=== PATIENT | female | born 1960 | race Caucasian/White ===

== ENCOUNTER → 2017-02-22 | Outpatient (CLI) | payer OTHER | LOC: OD 17:02 | PROVIDERS: ATTEND Internal Medicine Pulmonary Disease | DX: J30.2 Other seasonal allergic rhinitis (principal); R05 Cough | CPT/HCPCS: 71020 ==

== ENCOUNTER → 2017-02-22 | Outpatient (CLI) | payer OTHER ==
[2017-02-22 17:42] LABS: ABSOLUTE BASOPHILS # (AUTO) 0.1 10^3/uL (0.0-0.2); ABSOLUTE EOSINOPHILS # (AUTO) 0.2 10^3/uL (0.0-0.6); ABSOLUTE LYMPHOCYTES (AUTO) 2.6 10^3/uL (0.5-4.7); ABSOLUTE MONOCYTES (AUTO) 0.7 10^3/uL (0.1-1.4); ABSOLUTE NEUT (AUTO) 4.5 10^3/uL (1.7-8.2); BASOPHILS % (AUTO) 0.9 % (0-2); EOSINOPHILS % (AUTO) 2.2 % (0-6); HEMATOCRIT 39.3 % (36.0-47.0); HEMOGLOBIN 13.1 g/dL (12.0-15.5); LYMPHOCYTES % (AUTO) 31.9 % (13-45); MEAN CORPUSCULAR HEMOGLOBIN 30.9 pg (27.0-33.4); MEAN CORPUSCULAR HGB CONC 33.3 g/dL (32.0-36.0); MEAN CORPUSCULAR VOLUME 93 fl (80-97); RED BLOOD COUNT 4.24 10^6/uL (3.72-5.28)
== END ==
LOC: OD 17:10
PROVIDERS: ATTEND Internal Medicine Pulmonary Disease
DX: J30.2 Other seasonal allergic rhinitis (principal); R05 Cough
CPT/HCPCS: 36415; 82785; 85025; 87804

== ENCOUNTER → 2018-07-13 | Outpatient (CLI) | payer MEDICARE, OTHER ==
[2018-07-13 15:49] LABS: ABSOLUTE EOSINOPHILS # (AUTO) 0.1 10^3/uL (0.0-0.6); ABSOLUTE LYMPHOCYTES (AUTO) 3.6 10^3/uL (0.5-4.7); ABSOLUTE MONOCYTES (AUTO) 0.6 10^3/uL (0.1-1.4); ABSOLUTE NEUT (AUTO) 3.1 10^3/uL (1.7-8.2); BASOPHILS % (AUTO) 0.2 % (0-2); EOSINOPHILS % (AUTO) 0.9 % (0-6); HEMATOCRIT 36.9 % (36.0-47.0); HEMOGLOBIN 12.4 g/dL (12.0-15.5); LYMPHOCYTES % (AUTO) 48.4 % (13-45); MEAN CORPUSCULAR HEMOGLOBIN 31.1 pg (27.0-33.4); MEAN CORPUSCULAR HGB CONC 33.5 g/dL (32.0-36.0); MEAN CORPUSCULAR VOLUME 93 fl (80-97); PLATELET COUNT 415 10^3/uL (150-450); RED BLOOD COUNT 3.97 10^6/uL (3.72-5.28); RED CELL DISTRIBUTION WIDTH 15.5 % (11.5-14.0); SEGMENTED NEUTROPHILS % (AUTO) 42.5 % (42-78); TOTAL CELLS COUNTED % (AUTO) 100 %; WHITE BLOOD COUNT 7.4 10^3/uL (4.0-10.5)
--- NOTE | 2018-07-13 15:55 | RADIOLOGY REPORT (SQ) ---
EXAM DESCRIPTION: CHEST PA/LATERAL COMPLETED DATE/TIME: 07/13/2018 3:39 pm REASON FOR STUDY: BRONCHITIS, MUCOPURULENT RECURRENT COMPARISON: 02/22/2017, 08/22/2015 EXAM PARAMETERS: NUMBER OF VIEWS: two views TECHNIQUE: Digital Frontal and Lateral radiographic views of the chest acquired. RADIATION DOSE: NA LIMITATIONS: none FINDINGS: LUNGS AND PLEURA: No opacities, masses or pneumothorax. No pleural effusion. MEDIASTINUM AND HILAR STRUCTURES: No masses or contour abnormalities. HEART AND VASCULAR STRUCTURES: Heart normal size. No evidence for failure. BONES: No acute findings. HARDWARE: None in the chest. OTHER: No other significant finding. IMPRESSION: NO SIGNIFICANT RADIOGRAPHIC FINDING IN THE CHEST. TECHNICAL DOCUMENTATION: JOB ID: [id number] [employer]- All Rights Reserved Reading location - IP/workstation name: [email or web address]
[2018-07-13 16:02] LABS: A TYPE INFLUENZA AG NEGATIVE (NEGATIVE); B INFLUENZA AG NEGATIVE (NEGATIVE)
== END ==
LOC: OD 15:05
PROVIDERS: ATTEND Internal Medicine Pulmonary Disease
DX: J41.1 Mucopurulent chronic bronchitis (principal)
CPT/HCPCS: 71046; 85025; 87070; 87077; 87186; 87205; 87804

== ENCOUNTER → 2018-08-23 | Outpatient (CLI) | payer MEDICARE, OTHER ==
--- NOTE | 2018-08-23 16:26 | WOMENS IMAGING REPORT ---
EXAM DESCRIPTION: BILAT SCREENING MAMMO W/CAD COMPLETED DATE/TIME: 08/23/2018 4:06 pm REASON FOR STUDY: BILATERAL SCREENING MAMMO /Z12.31 Z12.31 ENCNTR SCREEN MAMMOGRAM FOR MALIGNANT NE OPLASM OF CHE COMPARISON: None available TECHNIQUE: Standard craniocaudal and mediolateral oblique views of each breast recorded using [employer] acquisition. LIMITATIONS: None. FINDINGS: No masses, calcifications or architectural distortion. No areas of suspicion. Read with the assistance of CAD. .[facility] - R2 Cenova Version 1.3 .[facility] - R2 Cenova Version 1.3 .[facility] - R2 Cenova Version 2.4 .[facility] [place] - R2 Cenova Version 2.4 .[facility] - R2 Step [employer] Specialist Version 9.2 IMPRESSION: NORMAL MAMMOGRAM. BIRADS 1. BREAST DENSITY: b. There are scattered areas of fibroglandular density. BIRAD: 1 NEGATIVE RECOMMENDATION: ROUTINE SCREENING Please continue yearly bilateral screening mammography/tomosynthesis in August 2019 COMMENT: The patient has been notified of the results by letter per SA requirements. Additional no tification policies are in place for contacting patient with suspicious or incomplete findings. Quality ID #225: The [employer] recommends an annual screening mammogram for women aged 40 years or over. This facility utilizes a reminder system to ensure that all patients receive reminder letters, and/or direct phone calls for appointments. This includes reminders for routine scr eening mammograms, diagnostic mammograms, or other Breast Imaging Interventions when appropriate. Th is patient will be placed in the appropriate reminder system. The [employer] (ACR) has developed recommendations for screening MRI of the breast s in certain patient populations, to be used in conjunction with mammography. Breast MRI surveillanc e may be appropriate for women with more than 20% lifetime risk of developing breast cancer as deter mined by genetic testing, significant family history of the disease, or history of mantle radiation f or Hodgkins Disease. ACR Practice Guidelines 2008. TECHNICAL DOCUMENTATION: FINDING NUMBER: (1) ASSESSMENT: (1) JOB ID: [id number] [employer]- All Rights Reserved Reading location - IP/workstation name: [email or web address]
== END ==
LOC: WI 15:19
PROVIDERS: ATTEND Family Medicine
DX: Z12.31 Encounter for screening mammogram for malignant neoplasm of breast (principal)
CPT/HCPCS: 77067

== ENCOUNTER → 2018-11-23 | Outpatient (CLI) | payer MEDICARE, OTHER ==
--- NOTE | 2018-11-23 14:20 | RADIOLOGY REPORT (SQ) ---
EXAM DESCRIPTION: CT CHEST WITHOUT COMPLETED DATE/TIME: 11/23/2018 1:55 pm REASON FOR STUDY: J43.9 EMPHYSEMA J43.9 EMPHYSEMA, UNSPECIFIED COMPARISON: None. TECHNIQUE: CT scan performed of the chest without intravenous contrast. Images reviewed with lung, soft tissue and bone windows. Reconstructed coronal and sagittal MPR images reviewed. All images st ored on PACS. All CT scanners at this facility use dose modulation, iterative reconstruction, and/or weight based d osing when appropriate to reduce radiation dose to as low as reasonably achievable (ALARA). [facility]: Dose Right [facility]: CareDose [facility]: Dose Right [facility]: Teradose 4D [facility]: Rollstream RADIATION DOSE: CT Rad equipment meets quality standard of care and radiation dose reduction techniq ues were employed. CTDIvol: 10.0 mGy. DLP: 373 mGy-cm. mGy. LIMITATIONS: No technical limitations. FINDINGS: LUNGS AND PLEURA: Mild centrilobular emphysema. 3 mm ground-glass nodule in the middle lo be image 59. Slightly smaller ground-glass nodule in the middle lobe image 60. HILAR AND MEDIASTINAL STRUCTURES: No identified masses or abnormal nodes. No obvious aneurysm. HEART AND VASCULAR STRUCTURES: No aneurysm. No pericardial effusion. UPPER ABDOMEN: Small cyst left lobe liver. Limited exam. THYROID AND OTHER SOFT TISSUES: No masses. No adenopathy. BONES: Nothing acute. HARDWARE: None in the chest. OTHER: No other significant findings. IMPRESSION: 1. Emphysema. No fibrosis. 2. Incidental less than 4 mm nodules in the middle lobe. COMMENT: Chest CT followup in 6 months is recommended. TECHNICAL DOCUMENTATION: JOB ID: [id number] Quality ID # 436: Final reports with documentation of one or more dose reduction techniques (e.g., Au tomated exposure control, adjustment of the mA and/or kV according to patient size, use of iterative reconstruction technique) 2010 [employer]- All Rights Reserved Reading location - IP/workstation name: [email or web address]
== END ==
LOC: RAD 13:15
PROVIDERS: ATTEND Internal Medicine Pulmonary Disease
DX: J43.9 Emphysema, unspecified (principal)
CPT/HCPCS: 71250

== ENCOUNTER → 2018-11-23 | Outpatient (CLI) | payer MEDICARE, OTHER ==
[2018-11-25 16:40] LABS: CYTOPLASMIC (C-ANCA) <1:20 titer (Neg:<1:20)
[2018-11-26 20:36] LABS: ATYPICAL PANCA <1:20 titer (Neg:<1:20); PERINUCLEAR (P-ANCA) <1:20 titer (Neg:<1:20)
== END ==
LOC: OD 14:01
PROVIDERS: ATTEND Internal Medicine Pulmonary Disease
DX: R06.00 Dyspnea, unspecified (principal)
CPT/HCPCS: 36415; 86021; 86038; 86225; 86235; 86430

== ENCOUNTER → 2019-05-27 | Outpatient (CLI) | payer MEDICARE, OTHER ==
--- NOTE | 2019-05-27 13:57 | RADIOLOGY REPORT (SQ) ---
EXAM DESCRIPTION: CT CHEST WITHOUT COMPLETED DATE/TIME: 05/27/2019 9:01 am REASON FOR STUDY: (R91.1)SOLITARY PULMONARY NODULE R91.1 SOLITARY PULMONARY NODULE COMPARISON: 11/23/2018 TECHNIQUE: CT scan performed of the chest without intravenous contrast. Images reviewed with lung, soft tissue and bone windows. Reconstructed coronal and sagittal MPR images reviewed. All images st ored on PACS. All CT scanners at this facility use dose modulation, iterative reconstruction, and/or weight based d osing when appropriate to reduce radiation dose to as low as reasonably achievable (ALARA). [facility]: Dose Right [facility]: CareDose [facility]: Dose Right [facility]: Teradose 4D [facility]: Smart Tap[employer] RADIATION DOSE: CT Rad equipment meets quality standard of care and radiation dose reduction techniq ues were employed. CTDIvol: 12.8 mGy. DLP: 491 mGy-cm. mGy. LIMITATIONS: No technical limitations. FINDINGS: LUNGS AND PLEURA: Less than 4 mm ground-glass nodules in the middle lobe image 56 and 58 n ot significantly changed. No new nodules. Mild emphysema. No effusions. HILAR AND MEDIASTINAL STRUCTURES: No identified masses or abnormal nodes. No obvious aneurysm. HEART AND VASCULAR STRUCTURES: No aneurysm. No pericardial effusion. UPPER ABDOMEN: No significant findings. Limited exam. THYROID AND OTHER SOFT TISSUES: No masses. No adenopathy. BONES: No significant finding. HARDWARE: None in the chest. OTHER: No other significant findings. IMPRESSION: Stable less than 4 mm pulmonary nodules. TECHNICAL DOCUMENTATION: JOB ID: [id number] Quality ID # [id number]: Final reports with documentation of one or more dose reduction techniques (e.g., Au tomated exposure control, adjustment of the mA and/or kV according to patient size, use of iterative reconstruction technique) 2010 [employer]- All Rights Reserved Reading location - IP/workstation name: [email or web address]
== END ==
LOC: RAD 08:42
PROVIDERS: ATTEND Internal Medicine Pulmonary Disease
DX: R91.1 Solitary pulmonary nodule (principal)
CPT/HCPCS: 71250

== ENCOUNTER 2019-07-27 13:11 | Emergency (ER) | payer MEDICARE, OTHER ==
--- NOTE | 2019-07-27 13:55 | ER Document Report ---
ED Medical Screen (RME) - General Chief Complaint: Leg Pain Stated Complaint: LEG/ARM PAIN Time Seen by Provider: 07/27/19 13:51 Primary Care Provider: JLUIS BURNS MD [Primary Care Provider] - Follow up as needed Mode of Arrival: Wheelchair Notes: 59-year-old female presents to ED to have blood clots ruled out for chest and left arm. States her primary care doctor sent her over. She states they were ruled out for her leg and now she needs to move her left arm and chest. Patient states she quit smoking in 2016 she does not vapor use tobacco. She has had lymphedema since she was in her 20s but the swelling to her left arm is new. She does not have a history of a DVT. I have greeted and performed a rapid initial assessment of this patient. A comprehensive ED assessment and evaluation of the patient, analysis of test results and completion of medical decision making process will be conducted by an additional ED providers. TRAVEL OUTSIDE OF THE [place] IN LAST 30 DAYS: No - Related Data Allergies/Adverse Reactions: buprenorphine [From Butrans] Allergy (Severe, Verified 05/15/16 10:17) Anaphylaxis naltrexone Allergy (Severe, Verified 07/27/19 13:51) Anaphylaxis aspirin Allergy (Mild, Verified 07/27/19 13:51) GI upset pregabalin [From Lyrica] Allergy (Verified 07/27/19 13:51) SWELLING erythromycin base [Erythromycin Base] Adverse Reaction (Severe, Verified 07/27/19 13:51) NAUSEA AND DIARRHEA milnacipran [From Savella] Adverse Reaction (Intermediate, Verified 07/27/19 13:51) Depression acetaminophen [From Percocet] Adverse Reaction (Mild, Verified 07/27/19 13:51) GI upset morphine Adverse Reaction (Mild, Verified 07/27/19 13:51) GI upset ondansetron [From Zofran (as hydrochloride)] Adverse Reaction (Mild, Verified 07/27/19 13:51) GI upset oxycodone [From Percocet] Adverse Reaction (Mild, Verified 07/27/19 13:51) GI upset Tetracyclic Antidepressants Adverse Reaction (Verified 07/27/19 13:51) Past Medical History - Past Medical History Cardiac Medical History: Denies: Hx Coronary Artery Disease, Hx Heart Attack, Hx Hypertension Pulmonary Medical History: Reports: Hx Asthma - Seasonal, Hx COPD Denies: Hx Bronchitis, Hx Pneumonia Neurological Medical History: Denies: Hx Cerebrovascular Accident, Hx Seizures Musculoskeltal Medical History: Reports Hx Arthritis - General Past Surgical History: Denies: Hx Hysterectomy - Immunizations Hx Diphtheria, Pertussis, Tetanus Vaccination: Yes Physical Exam - Vital signs Vitals: Temp Pulse Resp BP Pulse Ox 98.1 F 86 18 132/89 H 95 07/27/19 13:25 07/27/19 13:25 07/27/19 13:25 07/27/19 13:25 07/27/19 13:25 Course - Vital Signs Vital signs: Temp Pulse Resp BP Pulse Ox 98.1 F 86 18 132/89 H 95 07/27/19 13:25 07/27/19 13:25 07/27/19 13:25 07/27/19 13:25 07/27/19 13:25 Doctor's Discharge - Discharge Referrals: JLUIS BURNS MD [Primary Care Provider] - Follow up as needed
[2019-07-27 15:08] LABS: ABSOLUTE BASOPHILS # (AUTO) 0.1 10^3/uL (0.0-0.2); ABSOLUTE EOSINOPHILS # (AUTO) 0.1 10^3/uL (0.0-0.6); ABSOLUTE LYMPHOCYTES (AUTO) 2.2 10^3/uL (0.5-4.7); ABSOLUTE MONOCYTES (AUTO) 0.6 10^3/uL (0.1-1.4); ABSOLUTE NEUT (AUTO) 5.5 10^3/uL (1.7-8.2); BASOPHILS % (AUTO) 1.3 % (0-2); EOSINOPHILS % (AUTO) 1.1 % (0-6); HEMATOCRIT 36.9 % (36.0-47.0); LYMPHOCYTES % (AUTO) 25.5 % (13-45); MEAN CORPUSCULAR HEMOGLOBIN 28.8 pg (27.0-33.4); MEAN CORPUSCULAR HGB CONC 32.6 g/dL (32.0-36.0); MEAN CORPUSCULAR VOLUME 89 fl (80-97); MONOCYTES % (AUTO) 7.4 % (3-13); PLATELET COUNT 377 10^3/uL (150-450); RED BLOOD COUNT 4.17 10^6/uL (3.72-5.28); RED CELL DISTRIBUTION WIDTH 15.8 % (11.5-14.0); SEGMENTED NEUTROPHILS % (AUTO) 64.7 % (42-78); TOTAL CELLS COUNTED % (AUTO) 100 %; WHITE BLOOD COUNT 8.6 10^3/uL (4.0-10.5)
[2019-07-27 15:27] LABS: ALBUMIN 4.1 g/dL (3.5-5.0); ALKALINE PHOSPHATASE 142 U/L (38-126); ANION GAP 9 (5-19); ASPARTATE AMINO TRANSFERASE 25 U/L (14-36); BILIRUBIN,DIRECT 0.2 mg/dL (0.0-0.4); BILIRUBIN,TOTAL 0.4 mg/dL (0.2-1.3); BLOOD UREA NITROGEN 15 mg/dL (7-20); CALCIUM 9.1 mg/dL (8.4-10.2); CARBON DIOXIDE 28 mmol/L (22-30); CHLORIDE 103 mmol/L (98-107); CREATINE KINASE 106 U/L (30-135); GLUCOSE 89 mg/dL (75-110); POTASSIUM 3.8 mmol/L (3.6-5.0); TOTAL PROTEIN 7.6 g/dL (6.3-8.2)
[2019-07-27 15:40] LABS: TROPONIN I < 0.012 ng/mL
[2019-07-27 15:41] LABS: INTERNATIONAL RATION (INR) 0.93; PROTHROMBIN TIME 12.5 SEC (11.4-15.4)
--- NOTE | 2019-07-27 16:08 | XCELERA REPORT ---
[address] [address] Upper Extremity Venous Evaluation Name: VENUS SILVA Age: 59 yrs Gender: Female : 1960 Patient Status: Emergency Patient Location: ER Study Date: 07/27/2019 02:52 PM Procedure: Unilateral duplex scan of the left upper extremity veins was performed, including responses to compression and other maneuvers. Reason For Study: left arm swelling Ordering Physician: ZIGGY FRITZ Performed By: Iron Xie Left Sided Venous Evaluation Normal vessel filling wall to wall, compression and augmentation as well as Colour flow down to the forearm veins. Interpretation Summary No duplex evidence of DVT or obstruction in the left upper extremity. : ZIGGY FRITZ > Juan Busby
--- NOTE | 2019-07-27 17:24 | RADIOLOGY REPORT (SQ) ---
EXAM DESCRIPTION: CTA CHEST COMPLETED DATE/TIME: 07/27/2019 4:04 pm REASON FOR STUDY: primary md concern for pulmonary emboli COMPARISON: 05/27/2019 TECHNIQUE: CT scan of the chest performed using helical scanning technique with dynamic intravenous contrast injection. Images reviewed with lung, soft tissue and bone windows. Reconstructed coronal and sagittal MPR images reviewed. Additional 3 dimensional post-processing performed to develop Maximal Intensity Projection images (NC P). All images stored on PACS. All CT scanners at this facility use dose modulation, iterative reconstruction, and/or weight based d osing when appropriate to reduce radiation dose to as low as reasonably achievable (ALARA). [facility]: Dose Right [facility]: CareDose [facility]: Dose Right [facility]: Teradose 4D [facility]: [employer] CONTRAST TYPE AND DOSE: 71 mL Omnipaque 350- low osmolar. Contrast bolus adequate for pulmonary arteries and aorta. RENAL FUNCTION: BUN 15 creatinine 0.87 RADIATION DOSE: . LIMITATIONS: None. FINDINGS: LUNGS AND PLEURA: No infiltrate, effusion, or mass. AORTA AND GREAT VESSELS: No aneurysm. No dissection. HEART: No pericardial effusion. No significant coronary artery calcifications. PULMONARY ARTERIES: No emboli visualized in the main pulmonary arteries or the segmental branches. HILAR AND MEDIASTINAL STRUCTURES: No identified masses or abnormal nodes. HARDWARE: None in the chest. UPPER ABDOMEN: No significant findings. Limited exam. THYROID AND OTHER SOFT TISSUES: No masses. No adenopathy. BONES: No acute or significant finding. 3D MIPS: Confirm above findings. OTHER: No other significant finding. IMPRESSION: There is no pulmonary embolus. There is no aortic aneurysm or dissection. COMMENT: Quality ID # 436: Final reports with documentation of one or more dose reduction techniques (e.g., Automated exposure control, adjustment of the mA and/or kV according to patient size, use of iterative reconstruction technique) TECHNICAL DOCUMENTATION: JOB ID: [id number] [employer]- All Rights Reserved Reading location - IP/workstation name: [email or web address]
--- NOTE | 2019-07-27 20:51 | ER Document Report ---
ED General - General Chief Complaint: Chest Pain Stated Complaint: LEG/ARM PAIN Time Seen by Provider: 07/27/19 13:51 Primary Care Provider: JLUIS BURNS MD [ACTIVE STAFF] - Follow up as needed Mode of Arrival: Wheelchair TRAVEL OUTSIDE OF THE [place] IN LAST 30 DAYS: No - Related Data Allergies/Adverse Reactions: buprenorphine [From Butrans] Allergy (Severe, Verified 05/15/16 10:17) Anaphylaxis naltrexone Allergy (Severe, Verified 07/27/19 13:51) Anaphylaxis aspirin Allergy (Mild, Verified 07/27/19 13:51) GI upset pregabalin [From Lyrica] Allergy (Verified 07/27/19 13:51) SWELLING erythromycin base [Erythromycin Base] Adverse Reaction (Severe, Verified 07/27/19 13:51) NAUSEA AND DIARRHEA milnacipran [From Savella] Adverse Reaction (Intermediate, Verified 07/27/19 13:51) Depression acetaminophen [From Percocet] Adverse Reaction (Mild, Verified 07/27/19 13:51) GI upset morphine Adverse Reaction (Mild, Verified 07/27/19 13:51) GI upset ondansetron [From Zofran (as hydrochloride)] Adverse Reaction (Mild, Verified 07/27/19 13:51) GI upset oxycodone [From Percocet] Adverse Reaction (Mild, Verified 07/27/19 13:51) GI upset Tetracyclic Antidepressants Adverse Reaction (Verified 07/27/19 13:51) Past Medical History - Social History Smoking Status: Former Smoker Chew tobacco use (# tins/day): No Frequency of alcohol use: None Drug Abuse: None Patient has suicidal ideation: No Patient has homicidal ideation: No - Past Medical History Cardiac Medical History: Denies: Hx Coronary Artery Disease, Hx Heart Attack, Hx Hypertension Pulmonary Medical History: Reports: Hx Asthma - Seasonal, Hx COPD Denies: Hx Bronchitis, Hx Pneumonia Neurological Medical History: Denies: Hx Cerebrovascular Accident, Hx Seizures Musculoskeletal Medical History: Reports Hx Arthritis - General Past Surgical History: Denies: Hx Hysterectomy - Immunizations Hx Diphtheria, Pertussis, Tetanus Vaccination: Yes Hx Pneumococcal Vaccination: 08/04/15 Physical Exam - Vital signs Vitals: Temp Pulse Resp BP Pulse Ox 98.1 F 86 18 132/89 H 95 07/27/19 13:25 07/27/19 13:25 07/27/19 13:25 07/27/19 13:25 07/27/19 13:25 - Notes Notes: Patient was sent by PMD to rule out a blood clot in her left arm ports that she had swelling in the office several weeks is getting progressively worse. There is been no history of trauma. Painful also. Is not associated with any nausea or vomiting he denies any chest pain at rest twice and she denies chest pain. She has chronic shortness of breath which is unchanged and generally relieved with our albuterol inhaler. She had a nonproductive cough for the past week and a half some low-grade fevers and no chest pain nausea vomiting or abdominal pain. Reports chronic lymphedema in the lower extremities is been going on for years and unchanged. She did have a venous Doppler done by family doctor in June that showed evidence of a DVT. Denies any trauma or falls recent tr odell no family history of DVTs Past medical history meds and allergies listed on triage note and reviewed Review of systems all systems were reviewed and acutely negative except for in HPI PHYSICAL EXAMINATION: Vital signs noted in triage note reviewed GENERAL: Well-appearing, well-nourished and in no acute distress. HEAD: Atraumatic, normocephalic. EYES: Pupils equal round and reactive to light, extraocular movements intact, sclera anicteric, conjunctiva are normal. ENT: nares patent, oropharynx clear without exudates. Moist mucous membranes. NECK: Normal range of motion, supple without lymphadenopathy LUNGS: Breath sounds clear to auscultation bilaterally and equal. No wheezes rales or rhonchi. No chest wall tenderness HEART: Regular rate and rhythm without murmurs JVD ABDOMEN: Soft, nontender, normoactive bowel sounds. Obese EXTREMITIES: Lower extremities revealed +3 edema to the knees which is chronic. She has no palpable cords or Homans sign. There is no bony tenderness. The right upper extremity is nontender. Left upper extremity shows edema slightly above the elbow the forearm compartments are soft with good pulses. She has good capillary refill and sensation is intact to all digits. She does have tenderness over the brachial artery but there are no palpable cords. Tenderness in the axillary area but no nodes NEUROLOGICAL: No focal neurological deficits. Moves all extremities spontaneously and on command. PSYCH: Normal mood, normal affect. SKIN: Warm, Dry, normal turgor, no rashes or lesions noted. Course - Re-evaluation Re-evalutation: 07/27/19 21:01 ED patient has remained stable with good O2 sats Medical decision making patient has a history of lymphedema presents with swelling of the left arm this been going on for several weeks. She has no evidence of a clot in her arm or her chest. Laboratory says are unremarkable. I suspect this is related to her lymphedema. Have chronic shortness of breath but is been fairly well-controlled with her inhaler. At this point I think patient can be discharged home. I recommend she use her inhaler 4 times a day with a spacer. She has had this cough for a week and a half to be treated with Zithromax and prednisone 5 to follow-up with a family doctor patient reports she has taken Zithromax in the past 07/27/19 21:07 - Vital Signs Vital signs: Temp Pulse Resp BP Pulse Ox 98.1 F 86 10 L 136/65 H 100 07/27/19 13:25 07/27/19 13:25 07/27/19 18:00 07/27/19 15:33 07/27/19 18:00 - Laboratory Result Diagrams: 07/27/19 14:51 07/27/19 14:51 Laboratory results interpreted by me: 07/27/19 07/27/19 07/27/19 14:51 14:51 15:28 RDW 15.8 H APTT 23.0 L Alkaline Phosphatase 142 H - Diagnostic Test Radiology reviewed: Reports reviewed Discharge - Discharge Clinical Impression: COPD (chronic obstructive pulmonary disease), Lymphedema of arm Condition: Good Disposition: HOME, SELF-CARE Additional Instructions: Use her inhaler with the spacer 4 times a day, try to elevate your left arm to 3 times a day. Follow-up with your family doctor in 2 to 3 days if not better otherwise in 2 weeks. Return to the ED if you get worse or unable to follow-up with your family do ctor , please review the discharge instructions for signs and symptoms you should be worried about and when you should return to the ED Prescriptions: Prednisone [Deltasone] 20 mg PO TID #15 tablet Azithromycin [Zithromax] 250 mg PO DAILY #4 tablet Referrals: JLUIS BURNS MD [ACTIVE STAFF] - Follow up as needed
[2019-07-27 21:05] VITALS: BP 157/74
[2019-07-27] MEDS ORDERED: AZITHROMYCIN 250 MG TABLET PO ONE (21:08)
[2019-07-27] MEDS ORDERED: PREDNISONE 20 MG TABLET PO ONE (21:08)
== END 2019-07-27 21:24 | disposition home or self-care (01) ==
LOC: ER 13:11
DX: J44.9 Chronic obstructive pulmonary disease, unspecified (principal); I89.0 Lymphedema, not elsewhere classified; M79.605 Pain in left leg; Z88.3 Allergy status to other anti-infective agents; Z88.6 Allergy status to analgesic agent
CPT/HCPCS: 99284; 36415; 82553; 82550; 85025; 85610; 85730; 80053; 84484; 93971 ×2; 71275; A9270 ×2; J7512